=== PATIENT | female | born 1960 | race Caucasian/White ===

== ENCOUNTER 2018-09-05 14:34 | Outpatient (CLI) | payer OTHER ==
--- NOTE | 2018-09-06 14:07 | OP Clinic Progress Note ---
REASON FOR VISIT: This 57-year-old lady is seen accompanied by her . She has more pain in the left ear. She is off balance. She does tend to be significantly off balance and tends to fall a little more to the left side. Her left side is weaker with her multiple sclerosis that she has had in the range of 20 years. She takes an immunosuppressant shot once a month. She also has nasal congestion and stuffiness and a positive Mesfin sign bilaterally. There are slightly narrower valves on the left side than on the right. Both eardrums are retracted and pulled in. I do not see fluid behind either ear. The mastoid on the left has some thickening in it. Again, it does not have fluid behind the eardrum. She has some pressure and discomfort overlying the teeth. She has some premaxillary discomfort on the left side. There is a history of cataract surgery and sometimes some tear duct issues. I used diagrams and models. I went over choices and options. She had taken two 10-day courses of amoxicillin earlier regarding really bad sinuses, it was a little worse on the left than on the right. PLAN: I think given the variety of numerous problems that she has, an additional course of amoxicillin would be better, and I gave her 2 weeks worth of 500 mg 3 times a day. Again, we discussed the possibility of putting a tube in the ear if there is not some improvement or simply doing a myringotomy probably on the left side. There is a 1% chance of that myringotomy with a tube would not heal over. Patient will follow up in about 3 weeks. cc: Dr. Ayers, FIDENCIO CAMPBELL
== END 2018-09-05 14:39 | disposition home or self-care (01) ==
LOC: ENT 14:34
PROVIDERS: ATTEND Otolaryngology
DX: H92.02 Otalgia, left ear (principal); R09.81 Nasal congestion; G35 Multiple sclerosis
CPT/HCPCS: 99203